=== PATIENT | female | born 1950 | race Caucasian/White ===

== ENCOUNTER → 2016-07-03 | Outpatient (CLI) | payer BC ==
[~2016-07-03] MED LIST: ALL180 PO; ALPR-411 PO; B-COCAP2 PO; CALCTAB5 PO; CLC100 PO; DIAZ-165 PO; EFFSR75 PO; MULT-506 PO; OXYC-57 PO; RANI75TA7 PO; SYN50 PO; VITA400C15 PO
--- NOTE | 2016-07-03 12:46 | MAMMOGRAPHY REPORT ---
BILATERAL DIGITAL DIAGNOSTIC MAMMOGRAM TOMOSYNTHESIS WITH CAD: 07/03/2016 CLINICAL HISTORY: Asymptomatic. Personal history of breast cancer. TECHNIQUE: Breast tomosynthesis in addition to standard 2D mammography was performed. Current study was also evaluated with a Computer Aided Detection (CAD) system. Bilateral CC and MLO 2-D and belle synthesis views were obtained. COMPARISON: Comparison is made to exams dated: 07/02/2015 ultrasound, 07/02/2015 mammogram, 04/09/2015 breast MRI, 06/29/2014 mammogram, 06/05/2013 mammogram, and 05/31/2012 mammogram - [facility]. BREAST COMPOSITION: There are scattered areas of fibroglandular density in both breasts. FINDINGS: There are no suspicious masses, calcifications, or areas of architectural distortion noted in either breast. There has been no significant interval change compared to prior exams. There ar e stable post surgical changes in the left upper outer quadrant from prior lumpectomy, including sta ble architectural distortion, surgical clips, and coarse dystrophic calcifications at the lumpectomy bed. A biopsy marker clip is again noted in the right medial breast. Other scattered bilateral be nign-appearing calcifications are not significantly changed. IMPRESSION: ACR BI-RADS CATEGORY 2: BENIGN There is no mammographic evidence of malignancy. A 1 year screening mammogram is recommended. The p atient has been verbally notified of the results. Approximately 10% of breast cancers are not detected with mammography. A negative mammographic repor t should not delay biopsy if a clinically suggestive mass is present. Doris Hardy M.D. ah/:07/03/2016 11:12:09 Remnant Sorter: Kelly Olson [facility] letter sent: Normal 1/2 BI-RADS Code: ACR BI-RADS Category 2: Benign
== END | disposition home or self-care (01) ==
LOC: C.MAMM 10:32
PROVIDERS: ATTEND Family Medicine
DX: Z12.31 Encounter for screening mammogram for malignant neoplasm of breast (principal); Z85.3 Personal history of malignant neoplasm of breast

== ENCOUNTER → 2017-09-10 | Outpatient (CLI) | payer OTHER ==
--- NOTE | 2017-09-13 13:57 | MAMMOGRAPHY REPORT ---
BILATERAL DIGITAL SCREENING MAMMOGRAM TOMOSYNTHESIS WITH CAD: 09/10/2017 CLINICAL HISTORY: Asymptomatic. Personal history of breast cancer. TECHNIQUE: Breast tomosynthesis in addition to standard 2D mammography was performed. Current study was also evaluated with a Computer Aided Detection (CAD) system. COMPARISON: Comparison is made to exams dated: 07/03/2016 mammogram, 07/02/2015 mammogram, 06/29/2014 mamm ogram, 06/05/2013 mammogram, 05/31/2012 mammogram, and 05/29/2011 mammogram - [facility]. BREAST COMPOSITION: There are scattered areas of fibroglandular density in both breasts. FINDINGS: No suspicious masses, calcifications, or areas of architectural distortion are noted in ei ther breast. There has been no significant interval change compared to prior exams. There are stable post surgical changes in the left upper outer quadrant from prior lumpectomy, including stable archi tectural distortion, surgical clips, and coarse dystrophic calcifications at the lumpectomy bed. A b iopsy marker clip is again noted in the right medial breast. Other scattered bilateral benign-appear ing calcifications are not significantly changed. IMPRESSION: ACR BI-RADS CATEGORY 2: BENIGN There is no mammographic evidence of malignancy. A 1 year screening mammogram is recommended. The pa tient will receive written notification of the results. Approximately 10% of breast cancers are not detected with mammography. A negative mammographic report should not delay biopsy if a clinically suggestive mass is present. Doris Hardy M.D. ah/:09/10/2017 15:02:00 [employer] Operator: Rosendo MONSIVAIS(R)(M), [facility] letter sent: Normal 1/2 BI-RADS Code: ACR BI-RADS Category 2: Benign
== END | disposition home or self-care (01) ==
LOC: C.MAMM 13:08
DX: Z12.31 Encounter for screening mammogram for malignant neoplasm of breast (principal); Z85.3 Personal history of malignant neoplasm of breast